=== PATIENT | female | born 1935 | race Caucasian/White ===

== ENCOUNTER → 2017-08-17 | Outpatient (CLI) | payer OTHER, MEDICARE ==
[~2017-08-17] MED LIST: ASPI-515 PO; ATOR10TA9 PO; DULO20CA45 PO; FURO20TA3 PO; LEVO75TA5 PO; LISI-170 PO; OXYB5TAB7 PO; VIT1TABL32 PO
== END | disposition home or self-care (01) ==
LOC: CFH 10:37
PROVIDERS: ATTEND Family Medicine
DX: Z12.31 Encounter for screening mammogram for malignant neoplasm of breast (principal)
CPT/HCPCS: G0202